=== PATIENT | female | born 1980 | race Caucasian/White ===

== ENCOUNTER 2017-02-17 01:33 | Emergency (ER) | payer BC ==
[~2017-02-17] VITALS: Ht 162.6 cm; Wt 84.4 kg
[2017-02-17 02:33] LABS: *URINE HCG, QUAL NEGATIVE (NEGATIVE)
--- NOTE | 2017-02-17 04:35 | NUR ---
Patient discharged to home in stable conditon. Written and verbal after care instructions given. Patient verbalizes understanding of instructions.
== END 2017-02-17 04:36 | disposition home or self-care (01) ==
LOC: ER 01:39
DX: M62.838 Other muscle spasm (principal); M54.2 Cervicalgia
CPT/HCPCS: 84703; 96374; 96375; 99284; A4663; J1170; J2060; J2405

== ENCOUNTER 2017-02-18 19:23 | Emergency (ER) | payer BC ==
[~2017-02-18] VITALS: Ht 162.6 cm; Wt 70.3 kg
--- NOTE | 2017-02-18 19:55 | NUR ---
TO ROOM 4A FOR ER EVAL
[2017-02-18] MEDS ORDERED: CYCLOBENZAPRINE HCL 10 MG TABLET PO ONE (20:30)
[2017-02-18] MEDS ORDERED: LIDOCAINE 1%-EPI 1:100,000 20 ML VIAL TP ONE (20:30)
[2017-02-18] MEDS ORDERED: NAPROXEN 500 MG TABLET PO ONE (20:30)
[2017-02-18] MEDS ORDERED: NAPROXEN 500 MG TABLET ONE (20:38)
[2017-02-18] MEDS ORDERED: CYCLOBENZAPRINE HCL 10 MG TABLET ONE (20:38)
[2017-02-18] MEDS ORDERED: LIDOCAINE HCL 1% 20 ML VIAL ONE (20:41)
[2017-02-18] MEDS ORDERED: LIDOCAINE HCL 1% 20 ML VIAL IJ ONE (20:45)
--- NOTE | 2017-02-18 22:19 | NUR ---
MSE COMPLETED, PT STATED SHE FELT DECREASED PAIN. PT THEN D/C'D HOME, ACI/RX X1 GIVEN. PT AMBULATED W/O DIFF WITH FAMILY. PT'S TO DRIVE.
[2017-02-18 22:21] VITALS: BP 118/73
== END 2017-02-18 22:23 | disposition home or self-care (01) ==
LOC: ER 19:24
DX: M62.838 Other muscle spasm (principal)
CPT/HCPCS: 20552; 99284; A4663; J3490